=== PATIENT | female | born 1960 | race African-American/Black ===

== ENCOUNTER 2018-01-30 10:35 | Emergency (ER) | payer BC, MEDICAID ==
[~2018-01-30] VITALS: Ht 170.2 cm; Wt 84.0 kg
[~2018-01-30 10:35] MED LIST: ASPI-864 PO; CLON0.1T PO; INSLAN SQ; INSU100I7 SQ; LANTUSUD SUBCUT; METO100T16 PO; PRAV20TA57 PO
[2018-01-30] MEDS ORDERED: IBUPROFEN 800MG TABLET PO ONE (11:30)
[2018-01-30 15:31] VITALS: BP 148/72
== END 2018-01-30 15:31 | disposition home or self-care (01) ==
LOC: ER 11:04
DX: R51 Headache (principal); I10 Essential (primary) hypertension; E11.9 Type 2 diabetes mellitus without complications; V49.49XA Driver injured in collision with other motor vehicles in traffic accident, initial encounter; Y93.89 Activity, other specified; Y92.410 Unspecified street and highway as the place of occurrence of the external cause; Z88.2 Allergy status to sulfonamides; Z79.4 Long term (current) use of insulin; Z79.899 Other long term (current) drug therapy
CPT/HCPCS: 70450; 99284